=== PATIENT | female | born 1975 | race Hispanic/Latino ===

== ENCOUNTER 2017-08-31 13:24 | Outpatient (CLI) | payer OTHER ==
[~2017-08-31] VITALS: Ht 152.4 cm; Wt 79.4 kg
[~2017-08-31 13:24] MED LIST: ENDOCET 5-3251 EACH PO; MOTRIN800 MG PO; NATALCARE RX1 TABLE1 PO
[2017-08-31 13:46] VITALS: BP 115/71
[2017-08-31] MEDS ORDERED: GLUCOPHAGE500 MG PO (13:57)
[2017-08-31] MEDS ORDERED: IRON325 M1 PO (13:58)
== END 2017-08-31 15:57 | disposition home or self-care (01) ==
LOC: LDRP-OP 13:24 → 2WEST 13:25
DX: O47.1 False labor at or after 37 completed weeks of gestation (principal); Z3A.38 38 weeks gestation of pregnancy; O34.219 Maternal care for unspecified type scar from previous cesarean delivery; O09.523 Supervision of elderly multigravida, third trimester; O99.343 Other mental disorders complicating pregnancy, third trimester; F32.9 Major depressive disorder, single episode, unspecified; Z83.3 Family history of diabetes mellitus
CPT/HCPCS: 59025; G0378

== ENCOUNTER 2017-09-03 03:07 | Outpatient (CLI) | payer OTHER ==
[~2017-09-03 03:07] MED LIST changes: +GLUCOPHAGE500 MG PO; +IRON325 M1 PO
[2017-09-03 03:21] VITALS: BP 126/78
[2017-09-03] MEDS ORDERED: IBUPROFEN800 MG PO (14:19)
== END 2017-09-03 04:05 | disposition home or self-care (01) ==
LOC: LDRP-OP 03:07 → 2WEST 03:08 → LDRP-OP 09-04 09:59
DX: O47.1 False labor at or after 37 completed weeks of gestation (principal); O24.415 Gestational diabetes mellitus in pregnancy, controlled by oral hypoglycemic drugs; O09.523 Supervision of elderly multigravida, third trimester; Z3A.38 38 weeks gestation of pregnancy
CPT/HCPCS: 59025; G0378

== ENCOUNTER 2017-09-03 11:56 | Inpatient (IN) | payer OTHER ==
[2017-09-03] VITALS (13 sets, daily range): BP systolic 91–128; BP diastolic 52–77
[~2017-09-03] VITALS: Ht 152.4 cm; Wt 78.9 kg
[2017-09-03 12:52] LABS: BASOPHIL (%) 0.1 % (0-1); EOSINOPHIL (%) 0.1 % (0-5); HEMATOCRIT 36.4 % (36.0-46.0); HEMOGLOBIN 12.3 G/DL (11.9-15.5); IMMATURE GRANULOCYTE (%) 0.5 % (0.0-0.7); LYMPHOCYTE (%) 15.9 % (15-42); LYMPHOCYTE COUNT 1.3 K/uL (1.0-2.8); MCH 27.5 PG (29.0-34.0); MCHC 33.8 G/DL (30.0-36.0); MCV 81.4 FL (83-99); MONOCYTE (%) 5.5 % (3-12); MONOCYTE COUNT 0.5 K/uL (0-0.8); NEUTROPHIL (%) 77.9 % (45-76); NEUTROPHIL COUNT 6.6 K/uL (1.8-6.4); PLATELET COUNT 177 K/uL (156-360); RBC DIS.WIDTH-CV 15.6 % (11.8-14.6); RBC DIS.WIDTH-SD 46.5 % (39-53); RED BLOOD COUNT 4.47 M/uL (3.80-5.20); WHITE BLOOD COUNT 8.4 K/uL (4.1-10.2)
[2017-09-03] MEDS ORDERED: IBUPROFEN800 MG PO (14:19)
[2017-09-04 07:27] VITALS: BP 96/55
[2017-09-04 15:28] VITALS: BP 89/57
== END 2017-09-04 18:00 | disposition home or self-care (01) | DRG 775 ==
LOC: LDRP-OP 11:56 → 2WEST 11:57 → LDRP-OP 10-05 04:12
PROVIDERS: Advanced Practice Midwife
DX: O70.0 First degree perineal laceration during delivery (principal); O34.219 Maternal care for unspecified type scar from previous cesarean delivery; O24.420 Gestational diabetes mellitus in childbirth, diet controlled; Z3A.38 38 weeks gestation of pregnancy; Z37.0 Single live birth; Z79.84 Long term (current) use of oral hypoglycemic drugs
CPT/HCPCS: 59025; 85025; 86850; 86900; 86901; G0378; J0595; J7120